=== PATIENT | female | born 1940 | race Two or more races ===

== ENCOUNTER 2024-09-17 05:44 | Inpatient (IN) | payer OTHER ==
[~2024-09-17] VITALS: Ht 152.4 cm; Wt 54.4 kg
[~2024-09-17 05:44] MED LIST: DICLOFENAC-MIS1 EAC3 PO; LEVOTHYROXINE25 MCG PO; ZESTRIL20 MG PO
--- NOTE | 2024-09-17 06:19 | NUR ---
PTE REFERIDO POR EL MAYI FERNANDEZ PARA ESTABILIZAR LA HEMOGLOBINA LA CUAL 7.5. AYLEEN MARI S/V Y SE ACOMODA EN JALEN.
[2024-09-17] MEDS ORDERED: RINGERS SOLUTION,LACTATED 1,000 ML IV SCH (09:30)
[2024-09-17] MEDS ORDERED: FUROsemide 20 MG/2 ML VIAL IV ONE (09:30)
[2024-09-17 11:09] LABS: ALBUMIN 3.6 gm/dL (3.4-5.0); BILIRUBIN TOTAL 0.4 mg/dL (0.3-1.2); CALCIUM 9.9 mg/dL (8.5-10.1); CREATININE SERUM 1.07 mg/dL (0.55-1.02); GFR 48.97; GLOBULINA 4.3 G/DL (2.4-3.5); POTASSIUM 4.27 mEq/L (3.5-5.1); TOTAL PROTEIN 7.9 gm/dL (6.4-8.2)
[2024-09-17 11:35] LABS: MEAN CELL VOLUME 106.1 fL (80.00-100.00); MEAN CORPUSCULAR HGB CONC 35.2 g/dl (32.0-36.0); RED BLOOD COUNT 2.22 M/uL (4.00-6.00); RED CELL DISTRIBUTION WIDTH 17.3 % (11.5-14.5)
[2024-09-17 11:37] LABS: MEAN CORPUSCULAR HEMOGLOBIN 37.3 pg (27.00-32.0)
[2024-09-17 11:38] LABS: HEMATOCRIT 23.6 % (36.0-45.00)
[2024-09-17 11:39] LABS: HEMOGLOBIN 8.3 g/dL (12.0-15.00); PLATELET COUNT 364 K/uL (150-450)
[2024-09-17 13:19] VITALS: BP 121/79; O2SAT 100
[2024-09-17 16:18] VITALS: BP 163/79; O2SAT 95
[2024-09-18 00:22] VITALS: BP 142/79; O2SAT 96
[2024-09-18 08:00] VITALS: BP 129/65; O2SAT 99
[2024-09-18 16:10] VITALS: BP 148/68; O2SAT 100
[2024-09-18] MEDS ORDERED: ENALAPRILAT DIHYDRATE 1.25 MG/ML VIAL IV PRN (21:00)
[2024-09-19 00:26] VITALS: BP 122/76; O2SAT 98
[2024-09-19 01:24] LABS: HEMATOCRIT 34.5 % (36.0-45.00); HEMOGLOBIN 12.2 g/dL (12.0-15.00); MEAN CORPUSCULAR HEMOGLOBIN 33.9 pg (27.00-32.0); MEAN CORPUSCULAR HGB CONC 35.3 g/dl (32.0-36.0); PLATELET COUNT 306 K/uL (150-450); RED BLOOD COUNT 3.59 M/uL (4.00-6.00); RED CELL DISTRIBUTION WIDTH 20.4 % (11.5-14.5)
[2024-09-19] MEDS ORDERED: PANTOPRAZOLE SODIUM 40 MG/VIAL VIAL IV SCH (07:30)
[2024-09-19] MEDS ORDERED: OxyCODONE HCL 5 MG TABLET (ROXICODONE) PO PRN (09:00)
[2024-09-19] MEDS ORDERED: HYOSCYAMINE SULFATE 0.125 MG TAB.SUBL SL SCH (09:00)
[2024-09-19] MEDS ORDERED: ONDANSETRON HCL 2 MG/ML VIAL IV PRN (09:00)
[2024-09-19] MEDS ORDERED: MORPHINE SULFATE 4 MG/ML CARTRIDGE IV PRN (09:00)
[2024-09-19] MEDS ORDERED: DEXTROSE 50 % IN WATER 0.5 G/ML DISP.SYRIN IV PRN (09:00)
[2024-09-19] MEDS ORDERED: METRONIDAZOLE/SODIUM CHLORIDE 500 MG/100 ML PIGGYBACK IV SCH (09:00)
[2024-09-19] MEDS ORDERED: MEPERIDINE HCL 25 MG/ML AMPUL IV ONE (09:20)
[2024-09-19] MEDS ORDERED: HEMOSTATIC MATRIX 1 KIT KIT TOP ONE (10:30)
[2024-09-19] MEDS ORDERED: LIDOCAINE HCL 1%/EPINEPHRINE 20ML VIAL IJ ONE (10:30)
[2024-09-19] MEDS ORDERED: CEFTRIAXONE SODIUM 2,000 MG VIAL IV ONE (10:30)
[2024-09-19] MEDS ORDERED: METRONIDAZOLE/SODIUM CHLORIDE 500 MG/100 ML PIGGYBACK IV ONE (10:30)
[2024-09-19] MEDS ORDERED: DIBUCAINE 30 GM TUBE RECTAL ONE (10:30)
[2024-09-19] MEDS ORDERED: POVIDONE-IODINE 118 ML BOTT TOP ONE (10:30)
[2024-09-19] MEDS ORDERED: BUPIVACAINE HCL 30 ML VIAL IV ONE (10:30)
[2024-09-19] MEDS ORDERED: levoFLOXacin IN DEXTROSE 5 % 5 MG/ML PIGGYBAG IV NR (11:00)
[2024-09-19 13:00] VITALS: BP 106/91; O2SAT 95
[2024-09-19] MEDS ORDERED: ACETAMINOPHEN 500 MG GEL..CAP PO SCH (14:00)
[2024-09-19 16:56] VITALS: BP 94/54; O2SAT 94
[2024-09-19] MEDS ORDERED: POLYETHYLENE GLYCOL 3350 17 GM BLIST.PACK PO SCH (17:00)
[2024-09-19] MEDS ORDERED: TAMSULOSIN HCL 0.4 MG CAP PO STA (22:18)
[2024-09-20 01:25] VITALS: BP 119/62; O2SAT 99
[2024-09-20 06:55] LABS: HEMATOCRIT 30.4 % (36.0-45.00); HEMOGLOBIN 10.5 g/dL (12.0-15.00); MEAN CELL VOLUME 99.5 fL (80.00-100.00); MEAN CORPUSCULAR HEMOGLOBIN 34.5 pg (27.00-32.0); MEAN CORPUSCULAR HGB CONC 34.7 g/dl (32.0-36.0); PLATELET COUNT 253 K/uL (150-450); RED BLOOD COUNT 3.06 M/uL (4.00-6.00); RED CELL DISTRIBUTION WIDTH 20.2 % (11.5-14.5)
[2024-09-20 07:22] LABS: ALBUMIN 2.8 gm/dL (3.4-5.0); CALCIUM 8.9 mg/dL (8.5-10.1); CREATININE SERUM 0.88 mg/dL (0.55-1.02); GFR 61.37; MAGNESIUM 1.6 mg/dL (1.8-2.4); PHOSPHOROUS 3.1 mg/dL (2.5-4.9); POTASSIUM 3.8 mEq/L (3.5-5.1)
[2024-09-20] MEDS ORDERED: MAGNESIUM SULFATE IN WATER 50 ML IV NR (08:00)
[2024-09-20 08:40] VITALS: BP 91/54; O2SAT 95
[2024-09-20] MEDS ORDERED: LISINOPRIL 20 MG TABLET PO SCH (09:00)
[2024-09-20] MEDS ORDERED: levoFLOXacin IN DEXTROSE 5 % 150 ML IV SCH (09:00)
[2024-09-20] MEDS ORDERED: METRONIDAZOLE500 MG PO (13:00)
[2024-09-20] MEDS ORDERED: TAMS0.4C PO (13:00)
[2024-09-20] MEDS ORDERED: LEVOFLOXACIN750 MG PO (13:01)
[2024-09-20] MEDS ORDERED: LEVOTHYROXINE25 MCG PO (13:01)
[2024-09-20] MEDS ORDERED: ZESTRIL20 MG PO (13:01)
[2024-09-20] MEDS ORDERED: INTESTINEX680 M2 PO (13:01)
[2024-09-20] MEDS ORDERED: TAMSULOSIN HCL 0.4 MG CAP PO SCH (17:00)
[2024-09-20] MEDS ORDERED: ENOXAPARIN SODIUM 40 MG/0.4 ML SYRINGE SUBCUTANEO SCH (17:00)
[2024-09-21] MEDS ORDERED: ENOXAPARIN SODIUM 40 MG/0.4 ML SYRINGE SUBCUTANEO SCH (09:00)
== END 2024-09-20 14:41 | disposition home or self-care (01) | DRG 394 ==
LOC: ER 05:44 → SURH 11:10
PROVIDERS: Emergency Medicine; Surgery; ADMIT Internal Medicine Geriatric Medicine; ATTEND Internal Medicine Geriatric Medicine
PROC: 30233N1 Transfusion of Nonautologous Red Blood Cells into Peripheral Vein, Percutaneous Approach (ICD-10-PCS; principal; 2024-09-17)
PROC: 0DBP8ZZ Excision of Rectum, Via Natural or Artificial Opening Endoscopic (ICD-10-PCS; 2024-09-19)
PROC: 3E0T3BZ Introduction of Anesthetic Agent into Peripheral Nerves and Plexi, Percutaneous Approach (ICD-10-PCS; 2024-09-19)
DX: D12.9 Benign neoplasm of anus and anal canal (principal); C95.90 Leukemia, unspecified not having achieved remission; K62.6 Ulcer of anus and rectum; I10 Essential (primary) hypertension
CPT/HCPCS: 36430; 0184T; 64430